=== PATIENT | female | born 1965 | race Caucasian/White ===

== ENCOUNTER 2020-07-20 06:28 | Day surgery (SDC) | payer OTHER ==
[~2020-07-20 06:28] MED LIST: BENZACLIN GEL25 GM TOP; EVENING PRIMRO500 MG PO; HYDROCODON-ACE1 EA10 PO; IBUPROFEN400 MG PO; MOTRIN IB200 MG PO; MULTIPLE VITAM1 EAC1 PO; PERCOCET 5-3251 EACH PO; SENNA8.6 MG PO
--- NOTE | 2020-07-20 08:17 | NUR ---
07/20/20 0817 Liz Duncan 0811: PT ARRIVES TO PACU FOR RECOVERY. AWAKE ON AND OFF AND ANSWERS QUESTIONS APPROPRIATELY. VSS, RESP EVEN AND UNLABORED. O2 SAT STABLE ON 2L VIA NC. DENIES PAIN AND NAUSEA. 0815: REMAINS DROWSY, VSS, RESP EVEN AND UNLABORED. OXYGEN TURNED OFF AND PT TRIALLED ON RA. SATS REMAIN STABLE >98%. DENIES PAIN AND NAUSEA
--- NOTE | 2020-07-20 14:16 | NUR ---
PT ALERT, ORIENTED AND HERE FOR FIRST SCOPE. PT DEALT WITH PREP APPROPRIATELY ALL QUESTIONS ASKED ANSWERED. WILL BE HERE FOR DC. PT REQUESTED PRAYER WILL FOLLOW NEEDED
--- NOTE | 2020-07-20 14:31 | OR ---
[facility] [address], [place] [address] Signed DATE OF OPERATION: 07/20/2020 SURGEON: Bird Garber MD PREOPERATIVE DIAGNOSIS: Colon screening. POSTOPERATIVE DIAGNOSIS: Normal colon to cecum. PROCEDURE: Total colonoscopy to cecum. ANESTHESIA: Intravenous sedation; fentanyl 150 mcg, Versed 6 mg. INDICATION: This 54-year-old white woman is a patient of Dr. Bates. She has been referred for screening colonoscopy. She has no symptoms of bleeding diarrhea or constipation and has no family history of colon cancer. She is admitted at this time to undergo screening colonoscopy. She understands the risks of bleeding, infection, perforation, and so on. FINDINGS: The prep was excellent. Complete colonoscopy was undertaken of the cecum without question. There was no sign of polyps, diverticular formation, colitis, or cancer. DESCRIPTION OF PROCEDURE: The patient was brought to the endoscopy suite and placed in lateral decubitus position, given intravenous sedation to the point of slurred speech and nystagmus. Digital rectal examination was normal. An Olympus video colonoscope was passed in the rectum and manipulated throughout the colon. Abdominal wall stabilization was required to allow passage of the scope ultimately to the cecum. The ileocecal valve and appendiceal orifice were normal. The scope was withdrawn from that point and examination throughout showed no sign of polyps, diverticular formation, colitis, or cancer. Retroflex view was normal as well. The scope was removed and the patient was taken to the recovery room in good condition. CONCLUSION DIAGNOSIS: Normal colon to cecum. Electronically Signed By: BIRD GARBER MD 07/20/20 1431 PATIENT NAME: KIM CHAHAL OPERATIVE REPORT DATE OF : 69 REPORT #: [id number] PHYSICIAN: BIRD GARBER MD PCP: DIO CALDERON MD REPORT IS CONFIDENTIAL AND NOT TO BE RELEASED WITHOUT AUTHORIZATION [facility] [address] [facility] [place], [place] [address] Signed PLAN: Recommend repeat colonoscopy in 10 years sooner if clinically indicated. She will return to the ongoing care of Dr. Bates. Bird Garber MD JM/MODL /[id number] cc: Almas Bates MD Copies: ALMAS BATES MD ~ Electronically Signed By: BIRD GARBER MD 07/20/20 1431 PATIENT NAME: KIM CHAHAL OPERATIVE REPORT DATE OF : 69 REPORT #: [id number] PHYSICIAN: BIRD GARBER MD PCP: DIO CALDERON MD REPORT IS CONFIDENTIAL AND NOT TO BE RELEASED WITHOUT AUTHORIZATION
== END 2020-07-20 09:13 | disposition home or self-care (01) ==
LOC: OPS 06:28 → DS 06:28 → OPS 07:15 → DS 07:15 → OPS 09:13
PROVIDERS: ATTEND Surgery
PROC: 0DJD8ZZ Inspection of Lower Intestinal Tract, Via Natural or Artificial Opening Endoscopic (ICD-10-PCS; principal; 2020-07-20 07:15)
DX: Z12.11 Encounter for screening for malignant neoplasm of colon (principal); Z90.711 Acquired absence of uterus with remaining cervical stump
CPT/HCPCS: 99153; G0500; J2250; J3010; J7121